=== PATIENT | female | born 1935 | race Caucasian/White ===

== ENCOUNTER 2023-04-02 07:51 | Outpatient (RCR) | payer MEDICARE, SELFPAY ==
--- NOTE | ~2023-04-02 | XR_ITS ---
EXAMINATION: XR FOOT, LEFT CLINICAL INFORMATION: Nonhealing wound left foot. Patient states wound on tip of great toe. Also wound on side of second toe. Radiopaque marker placed by technologist to indicate areas of concern indicated by the patient at the distal tips of the first and second toes. COMPARISON: None available. TECHNIQUE: AP, lateral, and oblique views of the left foot. FINDINGS: The bones are diffusely demineralized. Moderate degenerative changes in the first metatarsophalangeal joint with metatarsus adductus, hallux valgus and medial soft tissue bunion. Mild degenerative changes in the interphalangeal joints of the toes. There is what appears to be a concave skin defect at the distal, slightly lateral aspect of the third toe with the suggestion of cortical destruction and flattening at the distal tuft of the third toe, concerning for possible destructive process such as osteomyelitis in the appropriate clinical setting. Focal cortical concavity at the distal tuft of the second toe of indeterminate age and etiology. XR/XR foot LT min 3V IMPRESSION: 1. Focal concave skin defect at the distal, slightly lateral aspect of the third toe with the suggestion of cortical destruction and flattening at the distal tuft of the third toe, concerning for possible destructive process such as osteomyelitis in the appropriate clinical setting. 2. Focal cortical concavity at the distal tuft of the second toe of indeterminate age and etiology. 3. Correlation with the clinical exam recommended to determine further management including possible additional imaging with MRI. This study was presented today, July 22, 2023 at 10:15 AM, for interpretation. PSA staff will provide results to referring provider at this time.
== END 2024-01-02 10:05 | disposition other institution (70) ==
LOC: HO.WCC 07:51
PROVIDERS: PCP Internal Medicine; Visit Provider Surgery
DX: I70.245 Atherosclerosis of native arteries of left leg with ulceration of other part of foot (principal); L97.526 Non-pressure chronic ulcer of other part of left foot with bone involvement without evidence of necrosis; I73.00 Raynaud's syndrome without gangrene
CPT/HCPCS: 11042; 11044; 20245; 73630; 88304; 88305; 88311; 97597; 99212; 99213; 99214